=== PATIENT | male | born 1970 | race Caucasian/White ===

== ENCOUNTER 2020-04-03 12:31 | Emergency (ER) | payer BC, OTHER ==
[~2020-04-03] VITALS: Ht 180.3 cm; Wt 104.3 kg
[2020-04-03 13:07] LABS: URINE BILIRUBIN NEGATIVE (Negative); URINE BLOOD NEGATIVE (Negative); URINE CLARITY CLEAR; URINE COLOR YELLOW; URINE GLUCOSE-RANDOM* NEGATIVE (Negative); URINE KETONES NEGATIVE (Negative); URINE LEUKOCYTES-REFLEX NEGATIVE (Negative); URINE NITRITE-REFLEX NEGATIVE (Negative); URINE PROTEIN (DIPSTICK) NEGATIVE (Negative); URINE SPECIFIC GRAVITY >= 1.030 (1.005-1.035); URINE UROBILINOGEN 0.2 E.U./dl (0.2-1.0)
[2020-04-03 16:28] LABS: ABSOLUTE NEUTROPHILS 12.3 thou/uL (1.4-8.2); BASOPHILS 0.4 % (0.0-2.0); EOSINOPHILS 0.6 % (0.0-3.0); HEMATOCRIT 44.6 % (42.0-52.0); HEMOGLOBIN 14.8 gm/dL (14.0-18.0); LYMPHOCYTES 3.2 % (24.0-44.0); MCH 28.9 pg (26.0-34.0); MCHC 33.1 g/dL (28.0-37.0); MCV 87.3 fL (80.0-100.0); MONOCYTES 6.3 % (1.0-8.0); PLATELET COUNT 272 thou/uL (150-400); POLYS 89.5 % (36.0-66.0); RBC 5.12 mil/uL (4.50-6.00); RDW 13.4 % (10.5-14.5); WBC 13.8 thou/uL (4.0-11.0)
[2020-04-03 16:39] LABS: CALCIUM 8.7 mg/dL (8.5-10.1)
[2020-04-03 16:47] LABS: DIRECT BILIRUBIN 0.2 mg/dL (<0.1-0.2); TOTAL PROTEIN 7.6 g/dL (6.4-8.2)
[2020-04-03] MEDS ORDERED: ONDANSETRON HCL4 M2 PO (17:12)
[2020-04-03] MEDS ORDERED: BENTYL 10 MG CA10 M1 PO (17:12)
[2020-04-03 17:31] VITALS: BP 126/77
== END 2020-04-03 17:34 | disposition home or self-care (01) ==
LOC: ER 12:31
PROVIDERS: Nurse Practitioner
DX: R10.9 Unspecified abdominal pain (principal)